=== PATIENT | female | born 1940 | race Caucasian/White ===

== ENCOUNTER → 2017-09-21 | Outpatient (CLI) | payer OTHER ==
[2017-09-21] VITALS (12 sets, daily range): BP systolic 115–146; BP diastolic 53–99
[~2017-09-21] MED LIST: ALBUTEROL2.5 MG/0.5 INH; ARIMIDEX BUCCAL; AUGMENTIN 500-1 EACH PO; AZITHROMYCIN 2250 MG PO; CALCIUM 500 +1 EAC5 PO; CARDIZEM CD120 MG PO; CARDIZEM CD240 MG PO; CARTIA XT240 M1 PO; CEFTIN500 MG PO; CLARITIN10 MG PO; CLEOCIN HCL150 M1 PO; COLACE100 MG PO; COUMADIN 1MG TAB1 M1 PO; COUMADIN 2 MG TA2 M1 PO; COUMADIN 5 MG TA5 M1 PO; COZAAR 25 MG TA25 M2 PO; COZAAR 25 MG TA25 MG PO; COZAAR 50 MG TA50 M2 PO; D3 DOTS2000 UNIT PO; FOSAMAX 70 MG T70 MG PO; GUAIFENESIN L1200 MG PO; HYDROCODONE-AP1 EAC6 PO; HYDROXYCHLOROQ200 M1 PO; KEFLEX500 MG PO; LASIX 40 MG TAB40 MG PO; LEVAQUIN 500 M500 M4 PO; LIPITOR20 MG PO; MEDROLDOSEPACK PO; MUSCLE RELAXER PO; NORCO 5-325 TA1 EACH PO; OXYCODONE HCL 55 MG PO; PACERONE 200 M200 M1 PO; POTASSIUM20 PO; PREDNISONE 10 M10 MG PO; SIMVASTATIN40 MG PO; TRAMADOL 50 MG50 MG PO; TYLENOL EXTRA500 MG PO; VENTOLIN HFA 1818 GM INH; VITAMIN B-12250 MCG PO; VITAMIN B-12500 MCG PO; VITAMIN D400 UNI1 PO; VITAMINC500 PO; XARELTO10 MG PO; XOPENEX1.25 MG/3 IH
[2017-09-21 09:56] LABS: HEMATOCRIT 37.5 % (37.0-47.0); HEMOGLOBIN 12.7 gm/dL (12.0-15.0); MCHC 33.9 g/dL (28.0-37.0); MCV 100.5 fL (80.0-100.0); MPV 8.7 fl. (7.2-11.1); RBC 3.73 mil/uL (4.20-5.00); RDW-CV 14.1 % (10.5-14.5); WBC 3.8 thou/uL (4.0-11.0)
[2017-09-21 10:05] LABS: INR 1.2; PROTIME 11.2 Seconds (9.20-11.50)
[2017-09-21 10:08] LABS: CALCIUM 9.5 mg/dL (8.5-10.1); CREATININE 0.7 mg/dL (0.6-1.3); POTASSIUM 4.4 mmol/L (3.5-5.1)
[2017-09-21 10:12] LABS: ALBUMIN 4.2 g/dL (3.4-5.0); TOTAL BILIRUBIN 0.7 mg/dL (<0.1-1.0); TOTAL PROTEIN 7.3 g/dL (6.4-8.2)
--- NOTE | 2017-09-21 10:25 | EKG ---
[place] [address] ELECTROCARDIOGRAM REPORT Name: SUN SHELLEY Room: [facility]#: [id number] Admission: 09/21/17 Attend Phys: Anselmo Shin MD Discharge: Date of : 42 Report #: [id number] THIS REPORT FOR: //name// [facility] Test Date: 2017-09-21 Test Time: 09:16:16 Pat Name: SUN SHELLEY Department: Room: Gender: F Fire Patrol: JACOB : 1940 Requested By: Anselmo Shin Order Number: [id number] Reading MD: Anselmo Shin Measurements Intervals [place] Rate: 103 P: ID: QRS: 54 QRSD: 119 T: 26 QT: 339 QTc: 444 Interpretive Statements Atrial fibrillation LVH with secondary repolarization abnormality Compared to ECG 04/19/2016 09:22:34 Early repolarization now present Sinus rhythm no longer present Ventricular premature complex(es) no longer present Possible ischemia no longer present Electronically Signed On 09-21-2017 10:25:37 CDT by Anselmo Shin [email or web address] <ELECTRONICALLY SIGNED> By: Anselmo Shin MD, [facility] 09/21/17 1025 5 Anselmo Shin MD, [facility] /EPI
--- NOTE | 2017-09-21 13:27 | CARD ---
[address] [address] CARDIAC CATH REPORT Name: SUN SHELLEY Room: [facility]#: [id number] Admission: 09/21/17 Attend Phys: Anselmo Shin MD Discharge: Date of : 42 Report #: [id number] THIS REPORT FOR: //name// CC: Anselmo Case DATE OF SERVICE: 09/21/2017 PRIMARY CARE PHYSICIAN: Claudia Case MD. INDICATIONS: Atrial fibrillation, shortness of breath, palpitations. CONSENT: Risks, benefits of the procedure described to patient in lay terms. The patient elects to proceed. After confirming that the patient had been taking Xarelto daily for more than 30 days prior to her presentation and her amiodarone. The patient was taken to the shellfish processing laborer holding procedure for an outpatient elective direct current cardioversion. Conscious sedation utilized was 3 mg of IV Versed and 50 mcg of IV fentanyl. Heart rate, oxygenation, blood pressure and respiratory rate were monitored per usual protocol. The patient was cardioverted with 200 joules, biphasic from atrial fibrillation to sinus rhythm, heart rate in the 80s. IMPRESSION: Successful direct current cardioversion. <ELECTRONICALLY SIGNED> By: Anselmo Shin MD, [facility] 09/21/17 1327 1021 1322[facility] Jenifer Shin MD, FACC /nt
--- NOTE | 2017-09-21 15:14 | EKG ---
[place] [address] ELECTROCARDIOGRAM REPORT Name: SUN SHELLEY Room: [facility]#: [id number] Admission: 09/21/17 Attend Phys: Anselmo Shin MD Discharge: Date of : 42 Report #: [id number] THIS REPORT FOR: //name// [facility] Test Date: 2017-09-21 Test Time: 10:43:34 Pat Name: SUN SHELLEY Department: Room: Gender: F Lpc: : 1940 Requested By: Anselmo Shin Order Number: [id number] Reading MD: Anselmo Shin Measurements Intervals [place] Rate: 85 P: 71 ND: 209 QRS: 10 QRSD: 117 T: 108 QT: 379 QTc: 451 Interpretive Statements Sinus rhythm LVH with secondary repolarization abnormality Compared to ECG 09/21/2017 09:16:16 Atrial fibrillation no longer present Electronically Signed On 09-21-2017 15:14:24 CDT by Anselmo Shin [email or web address] <ELECTRONICALLY SIGNED> By: Anselmo Shin MD, [facility] 09/21/17 1514 1043 1043 Anselmo Shin MD, [facility] /EPI
== END | disposition home or self-care (01) ==
LOC: M.CL 08:31
PROVIDERS: Internal Medicine Cardiovascular Disease
DX: I48.91 Unspecified atrial fibrillation (principal); J44.9 Chronic obstructive pulmonary disease, unspecified; Z88.8 Allergy status to other drugs, medicaments and biological substances; Z79.899 Other long term (current) drug therapy

== ENCOUNTER 2018-01-15 11:40 | Emergency (ER) | payer OTHER ==
[~2018-01-15] VITALS: Ht 144.8 cm; Wt 57.6 kg
[~2018-01-15 11:40] MED LIST changes: -HYDROCODONE-AP1 EAC6 PO
[2018-01-15] MEDS ORDERED: HYDROCODONE-AP1 EAC6 PO (14:56)
[2018-01-15 15:06] VITALS: BP 143/45
== END 2018-01-15 15:06 | disposition home or self-care (01) ==
LOC: M.ERS 11:40
DX: M13.851 Other specified arthritis, right hip (principal); E78.00 Pure hypercholesterolemia, unspecified; I10 Essential (primary) hypertension; I48.91 Unspecified atrial fibrillation; J45.909 Unspecified asthma, uncomplicated; F17.210 Nicotine dependence, cigarettes, uncomplicated; Z88.6 Allergy status to analgesic agent; Z88.8 Allergy status to other drugs, medicaments and biological substances; Z90.710 Acquired absence of both cervix and uterus

== ENCOUNTER 2018-05-09 21:25 | Inpatient (IN) | payer OTHER ==
[~2018-05-09] VITALS: Ht 144.8 cm; Wt 57.6 kg
[~2018-05-09 21:25] MED LIST changes: +COZAAR 50 MG TA50 M1 PO; -COZAAR 50 MG TA50 M2 PO; +HYDROCODONE-AP1 EAC6 PO; -XARELTO10 MG PO; +XARELTO15 MG PO
[2018-05-09 21:29] VITALS: BP 127/50
[2018-05-09 21:53] LABS: ABSOLUTE BASOPHILS 0.1 thou/uL (0.0-0.2); ABSOLUTE EOSINOPHILS 0.1 thou/uL (0.0-0.7); ABSOLUTE LYMPHOCYTES 1.3 thou/uL (0.8-5.3); ABSOLUTE MONOCYTES 0.6 thou/uL (0.0-1.2); ABSOLUTE NEUTROPHILS 5.4 thou/uL (1.6-8.1); BASOPHILS 0.9 %; EOSINOPHILS 1.6 %; HEMATOCRIT 29.2 % (37.0-47.0); HEMOGLOBIN 9.9 gm/dL (12.0-15.0); LYMPHOCYTES 17.6 %; MCH 33.8 pg (26.0-34.0); MCV 99.2 fL (80.0-100.0); MPV 7.9 fl. (7.2-11.1); NUCLEATED RBCS 0 /100WBC; PLATELET COUNT* 267 thou/uL (150-400); POLYS 71.9 %; RBC 2.95 mil/uL (4.20-5.00); RDW-CV 12.5 % (10.5-14.5); WBC 7.5 thou/uL (4.0-11.0)
[2018-05-09] MEDS ORDERED: HYDROCHLOROTHIA25 M2 (21:58)
[2018-05-09 22:02] LABS: ANION GAP 5 mmol/L (7-16); BUN 15 mg/dL (7-18); CALCIUM 8.4 mg/dL (8.5-10.1); CHLORIDE 93 mmol/L (98-107); CO2 27 mmol/L (21-32); CREATININE 0.9 mg/dL (0.6-1.3); GLUCOSE 119 mg/dL (70-99); POTASSIUM 4.3 mmol/L (3.5-5.1); SODIUM 125 mmol/L (136-145)
[2018-05-09] MEDS ORDERED: PROAIR HFA8.5 GM (22:02)
[2018-05-09] MEDS ORDERED: CARDIZEM CD240 MG (22:05)
[2018-05-09] MEDS ORDERED: LOSARTAN POTASS50 MG (22:05)
[2018-05-09 22:06] LABS: INR 1.2; PROTIME 12.6 Seconds (9.20-11.50)
[2018-05-09 22:12] LABS: ALBUMIN 3.6 g/dL (3.4-5.0); ALKALINE PHOSPHATASE 88 U/L (46-116); LIPASE 114 U/L (73-393); NT-PRO BRAIN NAT PEPTIDE 544 pg/mL (<300); SGOT 27 U/L (15-37); SGPT 31 U/L (30-65); TOTAL BILIRUBIN 0.4 mg/dL (<0.1-1.0); TOTAL PROTEIN 6.8 g/dL (6.4-8.2); TROPONIN-I LEVEL <0.06 ng/mL (<0.06)
[2018-05-09] MEDS ORDERED: PACERONE 200 M200 M1 (22:14)
[2018-05-09 23:25] VITALS: BP 111/54
[2018-05-10 00:06] VITALS: BP 117/68
[2018-05-10] MEDS ORDERED: CALCIUM 600 +1 EA13 PO (01:17)
[2018-05-10] MEDS ORDERED: ARIMIDEX1 MG PO (01:18)
[2018-05-10 04:00] VITALS: BP 125/55
--- NOTE | 2018-05-10 04:28 | NUR ---
PATIENT ADMITTED TO ROOM 221 AROUND 2335 FROM ER. PATIENT ORIENTED TO ROOM AND CALL LIGHT. ADMISSION HISTORY AND ASSESSMENT COMPLETED CHARTED, VSS OTHER THAN HR 30-40'S. PATIENT ASYMPTOMATIC. DENIES CHEST PAIN OR DISCOMFORT. O2 AT 2L PER NC, SATS >92%. NPO FOR CARDIOLOGY CONSULT IN AM. UP WITH STANDBY ASSIST TO BATHROOM. UTILIZES CALL LIGHT APPROPRIATELY AND ABLE TO VOICE NEEDS. CALL LIGHT WITHIN REACH
[2018-05-10 05:35] LABS: POTASSIUM 4.3 mmol/L (3.5-5.1)
[2018-05-10 05:45] LABS: URINE BILIRUBIN NEGATIVE (Negative); URINE BLOOD NEGATIVE (Negative); URINE CLARITY CLEAR; URINE COLOR YELLOW; URINE GLUCOSE-RANDOM NEGATIVE (Negative); URINE KETONES NEGATIVE (Negative); URINE LEUKOCYTES-REFLEX 1+ (Negative); URINE PROTEIN NEGATIVE (Negative); URINE UROBILINOGEN 0.2 E.U./dl (0.2-1.0)
[2018-05-10 05:47] LABS: URINE POTASSIUM-RANDOM 20.7 mmol/L
[2018-05-10 05:58] LABS: URINE NITRITE-REFLEX POSITIVE (Negative)
[2018-05-10 06:39] LABS: CASTS None Seen /LPF (None Seen); CRYSTALS None Seen /LPF (None Seen); MUCUS 0-3 Light strn/LPF (None Seen); SQUAMOUS 0-3 Few /LPF (0-3); URINE RBC 0-2 Rare /HPF (0-2); URINE WBC-REFLEX 6-15 Few /HPF (0-5)
[2018-05-10 07:30] VITALS: BP 140/53
[2018-05-10 10:56] LABS: CHOLESTEROL 116 mg/dL (<200); HDL CHOLESTEROL 78 mg/dL (>40); LDL CHOLESTEROL 31 mg/dL (<100); TC:HDL 1.5 Ratio (Not establshd); TRIGLYCERIDE 37 mg/dL (<150); VLDL 7 mg/dL (<40)
[2018-05-10 10:57] LABS: SERUM ASSESSMENT Clear
--- NOTE | 2018-05-10 15:05 | NUR ---
Pt is A&O. Resides at home alone. Independent and active. Pt has a cane that she uses out in the community, also has a walker, but does not use. Hx of . Hx of skilled at [facility]. Pt has strong family support and friends/neighbors. Goal is home at de, no needs anticipated.
[2018-05-10 16:19] VITALS: BP 108/48
--- NOTE | 2018-05-10 17:24 | CARDNUC ---
[place] [address] CARDIAC NUCLEAR IMAGING REPORT Name: SUN SHELLEY Room: [address] Volodymyr#: [id number] Admission: 05/09/18 Attend Phys: Raj Harrison Discharge: Date of : 42 Date of Service: 05/10/18 1724 Report #: [id number] THIS REPORT FOR: //name// APPROVED REPORT Study performed: 05/10/2018 09:52:00 Indication: Chest pain; bradycardia Patient Location: In-Patient Room #: 221 Stress Tech: Amaya Sue Stress Nurse: Tata Berrios RN Ht: 4 ft 9 in Wt: 130 lbs BSA: 1.50 m2 BMI: 28.12 Medical History Medical History: AF, CM, COPD Medications: xarelto, statin, losartan, HCTZ, amiodarone, diltiazem Cardiac Risk Factors: Age, HLP, tobacco use Previous Cardiac Procedures: Afib ablation Meds Held (24 hrs): diltiazem, amiodarone Resting Data Rest SPECT myocardial perfusion imaging was performed in supine position 30 minutes following the intravenous injection of 11.0 mCi of Tc-99m Sestamibi. Time of rest injection: 10:30 The images were gated to evaluate regional wall motion and calculate left ventricular ejection fraction. Administration Route: IV Administration Site: Right Arm Pharmacologic Stress Pharmacologic stress test was performed by injecting Regadenoson 0.4 mg IV push over 10-15 seconds immediately followed by the intravenous injection of 29.7 mCi of Tc-99m Sestamibi. Time of stress injection: 12:00 Administration Route: IV Administration Site: Right Arm Heart Rate at time of stress injection: 107 bpm. Gated Stress SPECT was performed 40 minutes after stress injection. The images were gated to evaluate regional [place] [address] CARDIAC NUCLEAR IMAGING REPORT Name: SUN SHELLEY Room: [address]#: [id number] Admission: 05/09/18 Attend Phys: Raj Harrison Discharge: Date of : 42 Date of Service: 05/10/18 1724 Report #: [id number] left ventricular ejection fraction. Prone imaging was performed. Stress Test Details Stress Test: Pharmacologic stress testing performed using 0.4 mg of regadenoson per 5 mL given IV over 10 seconds. HR Max Heart Rate (APMHR): 144 bpm Resting HR: 70 bpm Target HR (85% APMHR): 122 bpm Max HR Achieved: 107 bpm % of APMHR: 74 Recovery HR: 93 bpm BP Resting BP: 149/58 mmHg Max BP: 139/82 mmHg Recovery BP: 101/71 mmHg ECG Resting ECG: atrial fibrillation, left ventricular hypertrophy with repolarization abnormalities. Stress ECG: atrial fibrillation, left ventricular hypertrophy with repolarization abnormalities. ST Change: None Arrhythmia: None Recovery ECG: atrial fibrillation, left ventricular hypertrophy with repolarization abnormalities. Recovery ST Change: None Recovery Arrhythmia: None Clinical Reason for Termination: Completed protocol Stress Symptoms: none The patient tolerated Lexiscan infusion without significant symptoms. Stress ECG Conclusion The baseline 12-lead EKG shows atrial fibrillation. There is left ventricular hypertrophy with repolarization abnormalities noted. EKGs during and post Lexiscan infusion showed continued atrial fibrillation. No significant ST or T wave changes when compared to baseline were noted. There were no stress-induced arrhythmias. Study Quality Study: Good Artifact: [place] [address] CARDIAC NUCLEAR IMAGING REPORT Name: KARSTENSUN Tim Room: [address] Volodymyr#: [id number] Admission: 05/09/18 Attend Phys: Raj Harrison Discharge: Date of : 42 Date of Service: 05/10/18 1724 Report #: [id number] Study Data At rest, the left ventricular ejection fraction was 76%.. Post stress, the left ventricular ejection was 74%.. TID = 1.08. Perfusion Normal left ventricular perfusion. Wall Motion Normal left ventricular wall motion. Nuclear Conclusion ECG Findings: non-diagnostic Clinical Findings: negative for ischemia Nuclear Findings: negative for ischemia Exercise Capacity: not assessed Left Ventricular Function: normal Risk Study: low Myocardial perfusion images show no defect to suggest infarct or ischemia. Left ventricular systolic function appears normal on gated studies. This is a low risk study. <Conclusion> The baseline 12-lead EKG shows atrial fibrillation. There is left ventricular hypertrophy with repolarization abnormalities noted. EKGs during and post Lexiscan infusion showed continued atrial fibrillation. No significant ST or T wave changes when compared to baseline were noted. There were no stress-induced arrhythmias. <ELECTRONICALLY SIGNED> By: Lennox Gentile MD, FACC 05/10/18 1724 1724 172 Lennox Gentile MD, FACC /INF
--- NOTE | 2018-05-10 18:03 | 2DMMODE ---
[place] [address] 2 D/M-MODE ECHOCARDIOGRAM Name: SUN SHELLEY Room: [address] Cornel Helm#: [id number] Admission: 05/09/18 Attend Phys: Raj Harrison Discharge: Date of : 42 Date of Service: 05/10/18 1803 Report #: [id number] THIS REPORT FOR: //name// APPROVED REPORT Study performed: 05/10/2018 16:35:36 EXAM: Comprehensive 2D, Doppler, and color-flow Echocardiogram Patient Location: In-Patient Room #: [facility] Status: routine BSA: 1.50 HR: 70 bpm BP: 140/53 mmHg Rhythm: NSR Other Information Study Quality: Good Indications Chest Pain 2D Dimensions IVSd: 12.22 (7-11mm) LVOT Diam: 21.00 (18-24mm) LVDd: 48.59 mm PWd: 12.82 (7-11mm) Ascending Ao: 32.97 (22-36mm) LVDs: 31.94 (25-40mm) Aortic Root: 36.55 mm Volumes Left Atrial Volume (Systole) LA ESV Index: 84.30 mL/m2 Aortic Valve AoV Peak Kyrie.: 1.63 m/s AO Peak Gr.: 10.57 mmHg LVOT Max P.17 mmHg AO Mean Gr.: 5.18 mmHg LVOT Mean P.08 mmHg LVOT Max V: 1.14 m/s AO V2 VTI: 26.32 cm LVOT Mean V: 0.65 m/s JARVIS (VTI): 2.49 cm2 LVOT V1 VTI: 18.95 cm Mitral Valve E/A Ratio: 2.14 MV Decel. Time: 157.47 ms MV E Max Kyrie.: 0.89 m/[place] [address] 2 D/M-MODE ECHOCARDIOGRAM Name: SUN SHELLEY Room: [address] Volodymyr#: [id number] Admission: 05/09/18 Attend Phys: Raj Harrison Discharge: Date of : 42 Date of Service: 05/10/18 1803 Report #: [id number] MV PHT: 45.67 ms MVA (PHT): 4.82 cm2 TDI E/Medial E': 12.71 Medial E' Kyrie.: 0.07 m/s Pulmonary Valve PV Peak Kyrie.: 1.30 m/s PV Peak Gr.: 6.71 mmHg Tricuspid Valve RAP Estimate: 5.00 mmHg TR Peak Gr.: 19.94 mmHg RVSP: 25.00 mmHg PA Pressure: 25.00 mmHg Left Ventricle The left ventricle is normal size. There is normal LV segmental wall motion. Mild concentric left ventricular hypertrophy. Left ventricular systolic function is normal. LVEF is 60-65%. This study is not technically sufficient to allow evaluation of the LV diastolic function. Right Ventricle The right ventricle is normal size. The right ventricular systolic function is normal. Atria Left atrium is severely dilated. Right atrium is moderately dilated. Aortic Valve Mild aortic valve sclerosis. No aortic regurgitation is present. There is no aortic valvular stenosis. Mitral Valve Mitral annular calcification. Mild mitral regurgitation. No evidence of mitral valve stenosis. Tricuspid Valve The tricuspid valve is normal in structure. Trace tricuspid regurgitation. No pulmonary hypertension. Pulmonic Valve The pulmonary valve is normal in structure. There is no pulmonic valv[place] [address] 2 D/M-MODE ECHOCARDIOGRAM Name: SUN SHELLEY Room: [address] Cornel Helm#: [id number] Admission: 05/09/18 Attend Phys: Raj Harrison Discharge: Date of : 42 Date of Service: 05/10/18 1803 Report #: [id number] Great Vessels The aortic root is normal in size. IVC is normal in size and collapses >50% with inspiration. Pericardium There is no pericardial effusion. <Conclusion> The left ventricle is normal size. Mild concentric left ventricular hypertrophy. Left ventricular systolic function is normal. LVEF is 60-65%. Left atrium is severely dilated. Right atrium is moderately dilated. Mild aortic valve sclerosis. Mitral annular calcification. Mild mitral regurgitation. Trace tricuspid regurgitation. No pulmonary hypertension. IVC is normal in size and collapses >50% with inspiration. <ELECTRONICALLY SIGNED> By: Lennox Gentile MD, FACC 05/10/181802 02 02 Lennox Gentile MD, FACC /INF
--- NOTE | 2018-05-10 18:10 | NUR ---
VSS, ASSUMED CARE IN THE AM, ASSESSMENT PERFORMED AND CHARTED, FALL PRECAUTIONS IN PLACE AND CALL LIGHT IN REACH, PT IS A&O4 AND UP AD ROSIBEL, TRACING JUNCTIONAL ON THE MONITOR, PT ON RA, AND SHOULD D/C TOMORROW, PT GOAL IS TO COMPLETE STRSS TEST, AND SAFETY, AT THIS TIME PT HAS HAS OT STATUS CHANGE HOURLY ROUNDS COMPLETED AND WILL FOLLOW WITH PLAN OF CARE.
--- NOTE | 2018-05-10 18:25 | EKG ---
[place] [address] ELECTROCARDIOGRAM REPORT Name: SUN SHELLEY Room: [address]#: [id number] Admission: 05/09/18 Attend Phys: Jian Carpio Discharge: Date of : 42 Report #: [id number] THIS REPORT FOR: //name// [facility] Test Date: 2018-05-09 Test Time: 21:34:06 Pat Name: SUN SHELLEY Department: Room: [facility] Gender: F Project Designer: Aimee CAZARES : 1940 Requested By: Maxim Dubois Order Number: [id number] MD: Braulio Mitchell Measurements Intervals [place] Rate: 49 P: [place]: QRS: 61 QRSD: 123 T: 254 QT: 462 QTc: 418 Interpretive Statements Junctional rhythm LVH with secondary repolarization abnormality Compared to ECG 09/21/2017 10:43:34 Junctional rhythm now present Sinus rhythm no longer present Electronically Signed On 05-10-2018 18:24:53 COMMERCIAL LOAN OFFICER by Braulio Mitchell [email or web address] <ELECTRONICALLY SIGNED> By: Braulio Mitchell MD, [facility] 05/10/18 1824 33 Braulio Mitchell MD, [facility] /EPI
[2018-05-10 20:13] VITALS: BP 126/57
[2018-05-11] VITALS (7 sets, daily range): BP systolic 110–145; BP diastolic 41–82
--- NOTE | 2018-05-11 05:48 | NUR ---
PT IS ABLE TO COMMUNICATE HER NEEDS TO STAFF EFFECTIVELY. SHE HAS DENIED THE NEED FOR PAIN MEDICATION UP TO THIS TIME. LEFT ARM LIMB ALERT MAINTAINED. POSSIBLE DISCHARGE LATER TODAY.
--- NOTE | 2018-05-11 11:01 | NUR ---
VSS, ASSUMED CARE IN THE AM, ASSESSMENT PERFORMED AND CHARTED, FALL PRECUATIONS IN PLACE AND CALL LIGHT IN REACH, PT IS A&O4 AND UP AD ROSIBEL, ON RA AND IS TRACING AFIB ON THE MONITOR, RATE UNCONTROLED PT IS DENIES ANY PAIN AND HER GOAL IS TO LOWER HR AND SIT UP IN CHAIR WILL FOLLOW WITH PLAN OF CARE.
--- NOTE | 2018-05-11 15:37 | EKG ---
[place] [address] ELECTROCARDIOGRAM REPORT Name: SUN SHELLEY Room: [address] ADM IN M.R.#: [id number] Admission: 05/11/18 Attend Phys: Jian Carpio Discharge: Date of : 42 Report #: [id number] THIS REPORT FOR: //name// [facility] Test Date: 2018-05-11 Test Time: 09:23:46 Pat Name: SUNDA SHELLEY Department: Room: [address] Gender: F Director Sales And Trade Marketing: Emerson Farfan : 1940 Requested By: Starr Worthy Order Number: [id number] Srini MD: Braulio Mitchell Measurements Intervals [place] Rate: 105 P: 268 TX: 56 QRS: -7 QRSD: 130 T: 205 QT: 363 QTc: 480 Interpretive Statements Slow atrial flutter with variable bloci Atrial premature complexes Short [place] interval LVH with secondary repolarization abnormality Compared to ECG 05/09/2018 21:34:06 Atrial flutter is noted Junctional rhythm no longer present Electronically Signed On 05-11-2018 15:36:51 ADMINISTRATIVE ASSISTANT DATA ENTRY by Braulio Mitchell [email or web address] <ELECTRONICALLY SIGNED> By: Braulio Mitchell MD, [facility] 05/11/18 1536 2 2 Braulio Mitchell MD, [facility] /EPI
--- NOTE | 2018-05-11 18:12 | NUR ---
VSS, ASSUMED CARE IN THE AM, ASSESSMENT PERFORMED AND CHARTED, FALL PRECAUTIONS IN PLACE AND CALL LIGHT IN REACH, PT IS A&O4, TRACING AFIB, ON THE MONITOR, PT IS ON RA, UP AD ROSIBEL, AND HER GOAL WAS TO CONVERT TO SR AND OR SLOW HR TO RATE CONTROLLED, PT DENIES ANY PAIN, OR HAS CONVERTED TO SR SO GOAL MET AND WILL D/C MADDI HOURLY ROUNDS COMPLETED AND CHART CHECKED.
[2018-05-12] VITALS: BP 192/78
[2018-05-12 04:00] VITALS: BP 173/76
--- NOTE | 2018-05-12 05:37 | NUR ---
ASSUMED PATIENT CARE AT 1900. PATIENT HAD MINOR COMPLAINTS OF PAIN THROUGH THE NIGHT. SOMEWHAT CONTROLLED BY ORAL MEDICATIONS. PATIENT STATES THAT "THERE IS NOTHING MUCH THAT CAN BE DONE FOR ARTHRITIS PAIN" ALERT AND ORIENTED TOMES FOUR. IV PATENT TO FLUSHES. WATER PUMP OPERATOR AND HOURLY ROUNDING COMLETED CHARTED.
[2018-05-12 08:00] VITALS: BP 169/71
--- NOTE | 2018-05-12 10:31 | NUR ---
PT ALERT AND ORIENTED. TELE TRACKING NSR AND ALL VSS ON ROOM AIR. C/O LEFT SHOULDER/ARM PAIN AND NAUSEA. STATES HX LEFT SHOULDER ARTHRITIS. MD AWARE AND MEDICATED PER EMAR. EDUCATED ON SAFETY AND PLAN OF CARE. PLEASE SEE ASSESSMENT FOR ADDITIONAL INFORMATION. WILL CONTINUE TO MONITOR
[2018-05-12 12:00] VITALS: BP 154/63
[2018-05-12 16:00] VITALS: BP 149/72
[2018-05-12 21:00] VITALS: BP 145/79
[2018-05-13] VITALS (14 sets, daily range): BP systolic 83–141; BP diastolic 33–74
--- NOTE | 2018-05-13 05:12 | NUR ---
ASSUMED PATIENT CARE AT 1900. PATIENT ALERT AND ORIENTED TIMES FOUR. VERY DROWSY. DISH UP PERSON AND HOURLY ROUNDING COMPLETED CHARTED. VITAL SIGNS STABLE.
[2018-05-13] MEDS ORDERED: CLONAZEPAM 0.50.5 M1 (13:08)
[2018-05-13] MEDS ORDERED: PROZAC10 MG PO (13:08)
--- NOTE | 2018-05-13 16:07 | NUR ---
0800: PT ALERT AND ORIENTED. TELE TRACKING NSR AND ALL VSS ON ROOM AIR. PT C/O NAUSEA, MEDICATED PER EMAR. REPEAT SODIUM CRITICAL- DR. PANTOJA NOTIFIED. PT DENIES CP, SOA. EDUCATED ON SAFETY AND PLAN OF CARE. 1330: PT IN RESTROOM WITH DAUGHTER. PER DAUGHTER AND PT, PT WAS STANDING FOR DAUGHTER TO REPLACE GOWN. PT BEGAN TO FEEL WEAK AND LIGHT HEADED, SO DAUGHTER LOWERED PT TO GROUND. NO CHANGES IN LOC. BLOOD PRESSURES LOW, MAP'S 40'S-50'S AND RAPID RESPONSE CALLED. ORDERS TO TRANSFER TO ICU. WILL CONTINUE TO MONITOR
--- NOTE | 2018-05-13 16:59 | NUR ---
PATIENT RECEIVED FROM TELE AT 1605, ALERT AND ORIENTED. VITALS WITHIN NORMAL RANGE. ICU ORIENTATION PROVIDED.
[2018-05-13 20:21] LABS: ALBUMIN 3.4 g/dL (3.4-5.0); CALCIUM 8.6 mg/dL (8.5-10.1); POTASSIUM 4.2 mmol/L (3.5-5.1); TOTAL BILIRUBIN 0.8 mg/dL (<0.1-1.0); TOTAL PROTEIN 7.2 g/dL (6.4-8.2)
--- NOTE | 2018-05-13 20:40 | NUR ---
CRITICAL NA [address] BRIGHT. NS 3% ORDERED WITH NA REDRAW Q4H, NS 3% TO BE REPEATED UNTIL NA [address] BRIGHT TO BE CALLED IF NA INCREASES MORE THAN 2 IN FOUR HOURS. 1L ORAL FLUID RESTRICTION ORDERED.
[2018-05-14] VITALS (15 sets, daily range): BP systolic 108–166; BP diastolic 38–95
--- NOTE | 2018-05-14 06:56 | NUR ---
VSS, O2 SAT REMAINS >92% ON RA. NA HAS BEEN MONITORED Q4HR PER DR BRIGHT'S REQUEST, LEVEL HAS ONLY INCREASED FROM 115 TO 116 ALL NIGHT. NS 3% CONTINUES TO INFUSE AT 20ML/HR PER DR BRIGHT. 1L FR MAINTAINED, ORAL INTAKE 200ML SINCE MIDNIGHT. PT HAD ONE EPISODE OF NAUSEA AND VOMITTING RELIEVED BY IVP ZOFRAN. PT C/O LEFT RIB PAIN X1, ADEQUATE RELIEF OBTAINED WITH PRN TYLENOL. PT ASSISTED TO BSC X1 WITH MINIMAL ASSIST, TOLERATED WELL THOUGH BP DECREASED DURING TRANSFER BACK TO BED, DENIED DIZZINESS, N/V EPISODE WAS SHORTLY AFTER TRANSFER BACK TO BED. PT MOVES SELF ADEQUATELY IN BED TO RELIEVE PRESSURE. CALL LIGHT WITHIN REACH.
--- NOTE | 2018-05-14 09:37 | EKG ---
[place] [address] ELECTROCARDIOGRAM REPORT Name: SUN SHELLEY Room: [address] ADM IN .R.#: [id number] Admission: 05/11/18 Attend Phys: Jian Carpio Discharge: Date of : 42 Report #: [id number] THIS REPORT FOR: //name// [facility] Test Date: 2018-05-13 Test Time: 14:08:04 Pat Name: SUN SHELLEY Department: Room: [facility] Gender: F Graphic Production Artist: : 1940 Requested By: Buck Bunch Order Number: [id number] Srini MD: Darwin Corrales Measurements Intervals [place] Rate: 177 P: [place]: QRS: 18 QRSD: 139 T: 224 QT: 411 QTc: 706 Interpretive Statements sinus rhythm nonspecific st changes Artifact in lead(s) I,III,aVL,V1,V2,V3,V4,V5,V6 and baseline wander in lead(s) V4 Compared to ECG 05/11/2018 09:23:46 Atrial flutter no longer present Left ventricular hypertrophy no longer present Electronically Signed On 05-14-2018 9:37:33 RN LAB by Darwin Corrales [email or web address] <ELECTRONICALLY SIGNED> By: Darwin Corrales MD, FACC 05/14/18 0937 1408 1408 Darwin Corrales MD, [facility] /EPI
--- NOTE | 2018-05-14 10:18 | CON ---
[address] [address] CONSULTATION Name: UDAY SHELLEYSIYoli Dumont Room: [address] IN M.R.#: [id number] Admission: 05/11/18 Attend Phys: Jian Carpio Discharge: Date of : 42 Report #: [id number] THIS REPORT FOR: //name// CC: Claudia Harrison CONSULTING PHYSICIAN: Raj Harrison DO REASON FOR CONSULTATION: Hyponatremia. HISTORY OF PRESENT ILLNESS: A 77-year-old female with no known history of hyponatremia, was admitted with sodium of 125. Since being in the hospital, it had decreased to 114. She was on hydrochlorothiazide, this is a fairly new medication that was started in her geographic analyst's office about 2 months ago. She denies any weight loss, denies any excess fluid intake and back in September of last year had normal sodium of 138. She has had a cough for about 3 weeks and tells me that she was treated with some antibiotics. She currently is awake, alert, does not have any complaints and appears to be comfortable. REVIEW OF SYSTEMS: Constitutional, psych, heme, eyes, ENT, respiratory, cardiac, GI, , endocrine, all negative except as documented above. PAST MEDICAL HISTORY: Asthma, AFib with history of RVR and ablation, hysterectomy, dyslipidemia, hypertension. SOCIAL HISTORY: Positive for tobacco. FAMILY HISTORY: Positive for hypertension. CURRENT MEDICATIONS: Reviewed. PHYSICAL EXAMINATION: VITAL SIGNS: Blood pressure 117/54, pulse 74, respirations 19, temperature 36.9. GENERAL: No acute distress. EYES: Open. EARS: Externally normal. CARDIOVASCULAR: Regular rate. LUNGS: No crackles. ABDOMEN: Soft. MUSCULOSKELETAL: Nontender. PSYCHIATRIC: Awake, alert. LABORATORY DATA: Sodium 115, potassium 4, chloride 81, bicarbonate 25, BUN 14, creatinine 0.6, glucose 117, calcium 8.9, White cell count 11.7, hemoglobin 11.4, platelets 358, albumin 3.6. [place] [address] CONSULTATION Name: SUN SHELLEY Room: [address] IN [facility]#: [id number] Admission: 05/11/18 Attend Phys: Jian Carpio Discharge: Date of : 42 Report #: [id number] ASSESSMENT: 1. Hyponatremia with sodium of 125 on admission. It was 114 on 05/13/2018. On 09/2017, sodium is 138. No evidence of excess fluid intake or weight loss. CT head was unrevealing. Chest x-ray shows infiltrates. She was also on hydrochlorothiazide, which was newly started about 2 months ago. She was also on amiodarone. EF of 60-65% and TSH was normal. Serum osmolarity was 270. Urine osmolarity was 246. 2. Hypertension. 3. Atrial fibrillation 4. Asthma. 5. History of breast cancer. PLAN: 1. Urine sodium and urine potassium have been ordered. 2. We will give an infusion of 3% saline given the downward trajectory of her 3% saline. We will stop hydrochlorothiazide and have her avoid that indefinitely. Monitor I's and O's. Serial sodiums will be monitored as well. Thank you for requesting my opinion in the care and management of this patient. <ELECTRONICALLY SIGNED> By: Yannick Mathias MD 05/14/18 1018 1330 [id number] Mathias MD /nt
--- NOTE | 2018-05-14 17:17 | NUR ---
PT ASSESSMENT CHARTED. VSS THROUGHOUT SHIFT. UP WITH PT/OT. REPORT GIVEN TO TELEMETRY NURSE. PT TRANSFERED TO ROOM 207 VIA WHEELCHAIR WITH NURSING STAFF.
--- NOTE | 2018-05-14 18:04 | NUR ---
RECEIVED REPORT FROM KYRA PAZ FROM ICU. PT TRANSFERED TO TELE AROUND 1708, ASSUMED CARE. VSS. PT A&OX4. DENIES PAIN OR DISCOMFORT. PT OREIENTED TO ROOM , BED AND CALL LIGHT. SODIUM CHLORIDE 3% INFUSING PER IV. INTERNATIONAL MARKETING SPECIALIST PLACED. PT CURRENTLY RESTING IN BED WATCHING TV. FALL PRECAUTIONS IN PLACE. CALL LIGHT IS WITHIN REACH. HOURLY ROUNDING PERFORMED.
[2018-05-15] VITALS: BP 150/65
[2018-05-15 04:00] VITALS: BP 111/45
[2018-05-15 05:18] LABS: CALCIUM 8.3 mg/dL (8.5-10.1); CREATININE 0.5 mg/dL (0.6-1.3); MAGNESIUM 2.6 mg/dL (1.8-2.4); PHOSPHORUS* 2.2 mg/dL (2.5-4.9); POTASSIUM 3.3 mmol/L (3.5-5.1)
--- NOTE | 2018-05-15 05:19 | NUR ---
Pt a/o x 4. RA. VSS. Up with standby assist and walker. Na+ Q4HR x 3 days. Last N+ level called to Dr. Coon, order received at about 2330 to decrease 3% NaCl to 20 mL/hr. Instructed by Dr. Coon to call if Na+ goes up or down by 2 points with each Na+ result. Awaiting AM Na+ result. Left arm limb restriction band in place. Bed alarm on. Fall precautions maintained. Call light within reach. Pt resting in bed comfortably at this time without any apparent distress noted. 3% NaCl infusing per order. Will continue to monitor.
[2018-05-15 09:00] VITALS: BP 100/41
--- NOTE | 2018-05-15 10:28 | NUR ---
ASSUMED PT CARE AT 0700 PT IS ALERT AND ORIENTED X 4 PT DENIES PAIN OR SOA ON RA, PT IS UP WITH ASSIST X 1 WITH CANE PT IS A FALL RISK BED ALARM IS ON, PT IS SR BBB ON THE MONITOR, SPOKE WITH ITINERANT TEACHER ASSISTANT TAKE OFF MAN THIS AM WHO ORDERED TO STOP FLUIDS PT SODIUM IS STABALIZING WILL WAIT FOR ROUNDING TAKE OFF MAN TO SEE PT, PT IS PROGRESSING TOWARDS GOALS, WILL CONTINUE TO MONITOR
--- NOTE | 2018-05-15 10:59 | NUR ---
NO EXPERIENCE SPOKE TO THE PATIENT TO DISCUSS DISCHARGE PLANNING NEEDS AND SKILLED VS HOME WITH HH AT D/C. PATIENT STATES 'IM NOT GOING ANYWHERE BUT HOME'. PATIENT IS OPEN TO HH WITH [facility]. [facility] INFORMED OF REFERRAL FOR HH. CM WILL REMAIN AVIALABLE TO ASSIST AND FOLLOW NEEDED.
[2018-05-15 11:54] VITALS: BP 82/30
[2018-05-15 15:54] VITALS: BP 105/34
[2018-05-15] MEDS ORDERED: HYDROXYCHLOROQ200 M1 PO (17:35)
[2018-05-15] MEDS ORDERED: SYNTHROID50 MCG PO (17:36)
[2018-05-15 17:38] VITALS: BP 118/58
[2018-05-15] MEDS ORDERED: XARELTO10 MG PO (17:49)
--- NOTE | 2018-05-16 15:59 | NUR ---
P.T. ORDERS RECEIVED 05/14/18. PT DISCHARGED 05/15/18 PRIOR TO COMPLETION OF P.T. EVAL.
== END 2018-05-15 18:59 | disposition home health service (06) | DRG 303 ==
LOC: M.ERS 21:25 → M.2W 22:36 → M.TBA-ER 22:36 → M.2W 22:36 → M.ICU 05-11 09:20 → M.2W 05-14 17:17
PROVIDERS: Emergency Medicine; Internal Medicine; Internal Medicine Nephrology; ADMIT Internal Medicine
DX: I25.110 Atherosclerotic heart disease of native coronary artery with unstable angina pectoris (principal); E87.1 Hypo-osmolality and hyponatremia; D68.59 Other primary thrombophilia; Z66 Do not resuscitate; I49.5 Sick sinus syndrome; I12.9 Hypertensive chronic kidney disease with stage 1 through stage 4 chronic kidney disease, or unspecified chronic kidney disease; N18.2 Chronic kidney disease, stage 2 (mild); E78.00 Pure hypercholesterolemia, unspecified; M19.012 Primary osteoarthritis, left shoulder; M06.812 Other specified rheumatoid arthritis, left shoulder; M06.88 Other specified rheumatoid arthritis, vertebrae; E02 Subclinical iodine-deficiency hypothyroidism; E87.6 Hypokalemia; J45.909 Unspecified asthma, uncomplicated; D64.9 Anemia, unspecified; I48.0 Paroxysmal atrial fibrillation; F17.210 Nicotine dependence, cigarettes, uncomplicated; Z85.3 Personal history of malignant neoplasm of breast; Z90.710 Acquired absence of both cervix and uterus; Z79.01 Long term (current) use of anticoagulants; Z79.899 Other long term (current) drug therapy; Z88.8 Allergy status to other drugs, medicaments and biological substances; Z82.49 Family history of ischemic heart disease and other diseases of the circulatory system; Z82.5 Family history of asthma and other chronic lower respiratory diseases

== ENCOUNTER 2019-05-06 07:06 | Inpatient (IN) | payer MEDICARE ==
[~2019-05-06] VITALS: Ht 142.2 cm; Wt 57.9 kg
--- NOTE | ~2019-05-06 | H ---
[address] [address] HISTORY AND PHYSICAL Name: SUN SHELLEY Room: [address] IN .R.#: [id number] Admission: 05/06/19 Attend Phys: Lennox Gentile MD Discharge: 05/08/19 Date of : 42 Report #: [id number] THIS REPORT FOR: //name// cc: Claudia Case MD, Pamela MD ~ THIS REPORT FOR: //name// Please refer to the History and Physical performed in the physician's office. By: [facility] /TRENA
[~2019-05-06 07:06] MED LIST changes: +ARIMIDEX1 MG PO; +CALCIUM 600 +1 EA13 PO; +CARDIZEM CD240 MG; +CLONAZEPAM 0.50.5 M1; +HYDROCHLOROTHIA25 M2; +LOSARTAN POTASS50 MG; +PACERONE 200 M200 M1; +PROAIR HFA8.5 GM; +PROZAC10 MG PO; +SYNTHROID50 MCG PO; +XARELTO10 MG PO
[2019-05-06 11:00] VITALS: BP 146/64
--- NOTE | 2019-05-06 11:00 | NUR ---
PT ADMITTED TO ROOM 212 DIRECT FROM [facility] OFFICE WITH ORDERS. PT HX OF AFIB/FLUTTER,TACHYBRADYCARDIA SYNDROME THAT IS BEING TREATED BY PHYSICIAN. PT HAS HAD AN OUTPATIENT MONITOR THAT SHOWED AFIB/FLUTTER WITH RATE BETWEEN 40-130 BPM. PT HAS NO COMPLAINTS AT THIS TIME. PT IS ALERT OX4, ABLE TO ANSWER QUESTIONS APPROPRIATELY. PT GIVEN 80 MG SOTALOL PO DIRECTED.BILLET GRINDER IN PLACE,IV STARTED, ASSESMENT COMPLATE AND CHARTED. PT IS INDEPENDENT IN ACTIVITY AND EXPRESSES WISHES TO REMAIN SO. PT EDUCATED ON PLAN OF CARE,TREATMENTS,DIET,ACTIVITY AND CALL LIGHT. PT HAS NO FURTHER QUESTIONS AT THIS TIME.
[2019-05-06 12:11] LABS: HEMATOCRIT 40.4 % (37.0-47.0); HEMOGLOBIN 13.7 gm/dL (12.0-15.0); MCH 31.8 pg (26.0-34.0); MCHC 33.8 g/dL (28.0-37.0); MCV 94.2 fL (80.0-100.0); MPV 8.5 fl. (7.2-11.1); RBC 4.29 mil/uL (4.20-5.00); RDW-CV 13.2 % (10.5-14.5); WBC 5.2 thou/uL (4.0-11.0)
[2019-05-06 12:26] LABS: ALBUMIN 4.2 g/dL (3.4-5.0); CALCIUM 9.4 mg/dL (8.5-10.1); CREATININE 0.6 mg/dL (0.6-1.3); POTASSIUM 4.3 mmol/L (3.5-5.1); TOTAL BILIRUBIN 1.3 mg/dL (<0.1-1.0); TOTAL PROTEIN 7.9 g/dL (6.4-8.2)
[2019-05-06 16:00] VITALS: BP 143/72
--- NOTE | 2019-05-06 16:54 | EKG ---
[place] [address] ELECTROCARDIOGRAM REPORT Name: SUN SHELLEY Room: [address] ADM IN M.R.#: [id number] Admission: 05/06/19 Attend Phys: Lennox Gentile, Discharge: Date of : 42 Date of Service: 05/06/19 1033 Report #: [id number] THIS REPORT FOR: //name// [facility] Test Date: 2019-05-06 Test Time: 10:33:36 Pat Name: SUN SHELLEY Department: Room: [address] Gender: F Second Helper: : 1940 Requested By: Lennox Gentile Order Number: [id number] Srini MD: Braulio Mitchell Measurements Intervals [place] Rate: 68 P: [place]: QRS: 48 QRSD: 111 T: 236 QT: 355 QTc: 378 Interpretive Statements Atrial fibrillation LVH with secondary repolarization abnormality Compared to ECG 05/13/2018 14:08:04 Left ventricular hypertrophy now present Early repolarization now present Sinus rhythm no longer present Electronically Signed On 05-06-2019 16:53:17 HEEL SEAT SANDER by Braulio Mitchell [email or web address] <ELECTRONICALLY SIGNED> By: Braulio Mitchell MD, [facility] 05/06/19 1653 1033 1033 Braulio Mitchell MD, [facility] /EPI
[2019-05-06 19:50] VITALS: BP 148/92
[2019-05-07] VITALS (9 sets, daily range): BP systolic 127–172; BP diastolic 54–88
[2019-05-07 11:33] LABS: APTT 28.9 Seconds (25.0-31.3); INR 1.1; PROTIME 11.2 Seconds (9.20-11.50)
--- NOTE | 2019-05-07 11:47 | EKG ---
[place] [address] ELECTROCARDIOGRAM REPORT Name: SUN SHELLEY Room: [address] ADM IN M.R.#: [id number] Admission: 05/06/19 Attend Phys: Lennox Gentile, Discharge: Date of : 42 Date of Service: 05/07/19 0838 Report #: [id number] THIS REPORT FOR: //name// [facility] Test Date: 2019-05-07 Test Time: 08:38:34 Pat Name: SUN SHELLEY Department: Room: [address] Gender: F Lawn Specialist: : 1940 Requested By: Lennox Gentile Order Number: [id number] Srini MD: Braulio Mitchell Measurements Intervals [place] Rate: 75 P: [place]: QRS: 40 QRSD: 112 T: 234 QT: 355 QTc: 397 Interpretive Statements Atrial fibrillation Ventricular premature complex LVH with secondary repolarization abnormality Compared to ECG 05/06/2019 10:33:36 Ventricular premature complex(es) now present Electronically Signed On 05-07-2019 11:46:02 MANAGER RAIL by Braulio Mitchell [email or web address] <ELECTRONICALLY SIGNED> By: Braulio Mitchell MD, FACC 05/07/19 1146 0838 0838 Braulio Mitchell MD, [facility] /EPI
--- NOTE | 2019-05-07 14:46 | NUR ---
Pt out of room getting a pacemaker, spoke with dtr in room. Pt normally resides at home alone and is active and independent. Pt has a walker and cane that she can use for mobility, primarily uses the cane. [facility]. Per dtr, plan dc to home tomorrow, Pt will not want HH, Pt's granddtr is a nurse and leaves close by if needed. Following.
--- NOTE | 2019-05-07 17:08 | NUR ---
ASSUMED CARE OF PT AROUND 0730 THIS AM. REFER TO ASSESSMENT. PT HAD PACEMAKER PLACED THIS SHIFT. PT CARDIOVERTED PRIOR TO PACEMAKER PLACEMENT BUT APPEARS TO BE BACK IN AFIB. PT NOTED TO DESAT DURING PROCEDURE BUT HAS BEEN TITRATED BACK TO RA AND TOLERATING WELL. ARM SPLINT PLACED TO RUE. ON HEART HEALTHY DIET AND TOLERATING WELL. NO C/O PAIN. NO OTHER CONCERNS AT THIS TIME. CLWR. WCTM.
[2019-05-08 00:48] VITALS: BP 174/84
[2019-05-08 05:00] VITALS: BP 171/73
--- NOTE | 2019-05-08 06:38 | NUR ---
VSS. SEE MAR. SEE CHARTING. HOURLY ROUNDING FOR SAFETY.
[2019-05-08 08:00] VITALS: BP 173/86
[2019-05-08] MEDS ORDERED: SORINE 80 MG TA80 M1 PO (09:09)
[2019-05-08 09:43] VITALS: BP 173/86
[2019-05-08] MEDS ORDERED: ELIQUIS5 MG PO (10:42)
--- NOTE | 2019-05-08 11:36 | NUR ---
RECEIVED REPORT AT 0705. PT VOICED NO CONCERNS THIS SHIFT. SR WITH PACS ON NOC ENGINEER. HOURLY ROUNDING COMPLETED. DISCHARGE ORDERS RECEIVED. DISCHARGE INSTRUCTIONS GIVEN TO PATIENT AND PT VERBALIZED UNDERSTANDING. IV CATHETER DISCONTINUED. PT ESCORTED DOWN TO MAIN ENTRANCE VIA WHEELCHAIR TO GO HOME WITH DAUGHTER.
--- NOTE | 2019-05-08 17:38 | D ---
[facility] [address] [place] [address] DISCHARGE SUMMARY Name: SUN SHELLEY Tim Room: [address] IN .R.#: [id number] Admission: 05/06/19 Attend Phys: Lennox Gentile MD Discharge: 05/08/19 Date of : 42 Report #: [id number] THIS REPORT FOR: //name// cc: Claudia Case MD, Pamela MD ~ THIS REPORT FOR: //name// CC: Lennox Case MD DATE OF SERVICE: 05/08/2019 DISCHARGE DIAGNOSES: 1. Persistent atrial fibrillation. 2. Sick sinus syndrome. PROCEDURES DURING THE HOSPITALIZATION: 1. Permanent pacemaker placement. 2. DC cardioversion. 3. Antiarrhythmic loading. HOSPITAL COURSE: The patient was admitted to the hospital in persistent atrial fibrillation. She had been noted to have symptomatic bradycardia in the past. She was placed on sotalol 80 mg twice daily and monitored. Her atrial fibrillation persisted. The following day, she underwent DC cardioversion and pacemaker placement without complication. The patient tolerated hospitalization. She was started on sotalol 80 mg twice daily. Her diltiazem and metoprolol were discontinued. She remained stable throughout hospitalization. Morning EKG shows atrially paced rhythm with normal QT intervals. DISCHARGE MEDICATIONS: Loratadine 10 mg daily, Plaquenil 200 mg b.i.d., anastrozole 1 mg daily, albuterol inhaler 2 puffs p.r.n., Xarelto 20 mg daily, atorvastatin 20 mg daily, sotalol 80 mg b.i.d., losartan 50 mg b.i.d., Tylenol p.r.n., Synthroid 50 mcg daily, B12 500 mcg daily, D3 2000 units daily, and Fosamax 70 mg weekly. DISPOSITION: The patient will follow up in the office for site check in 1 week. The patient will follow up with the pacemaker interrogation in 1-2 months. We will follow up with myself in the office in 3 months. <ELECTRONICALLY SIGNED> By: Lennox Gentile MD, FACC 05/08/19 1738 0916 [id number] Jose Alejandro Gentile MD, FACC /nt
--- NOTE | 2019-05-09 11:08 | EKG ---
[place] [address] ELECTROCARDIOGRAM REPORT Name: SUN SHELLEY Room: [address] IN .R.#: [id number] Admission: 05/06/19 Attend Phys: Lennox Gentile, Discharge: 05/08/19 Date of : 42 Date of Service: 05/08/19 0816 Report #: [id number] THIS REPORT FOR: //name// [facility] Test Date: 2019-05-08 Test Time: 08:16:17 Pat Name: SUN KARSTEN Department: Room: [address] Gender: F Reference Services Head: : 1940 Requested By: Lennox Gentile Order Number: [id number] Reading MD: Lennox Gentile Measurements Intervals [place] Rate: 75 P: [place]: 227 QRS: 73 QRSD: 117 T: 227 QT: 374 QTc: 418 Interpretive Statements Atrial-paced complexes Prolonged KS interval Borderline low voltage, extremity leads LVH with secondary repolarization abnormality Compared to ECG 05/07/2019 08:38:34 First degree AV block now present Atrial fibrillation no longer present Ventricular premature complex(es) no longer present Electronically Signed On 05-09-2019 11:07:58 DENTAL LAB TECHNICIAN by Lennox Gentile [email or web address] <ELECTRONICALLY SIGNED> By: Lennox Gentile MD, FACC 05/09/19 1107 5 5 Lennox Gentile MD, FAC /EPI
--- NOTE | 2019-05-09 11:09 | EKG ---
[place] [address] ELECTROCARDIOGRAM REPORT Name: SUN SHELLEY Room: [address] IN .R.#: [id number] Admission: 05/06/19 Attend Phys: Lennox Gentile, Discharge: 05/08/19 Date of : 42 Date of Service: 05/08/19817 Report #: [id number] THIS REPORT FOR: //name// [facility] Test Date: 2019-05-08 Test Time: 08:18:47 Pat Name: SUN SHELLEY Department: Room: [address] Gender: F Boom Stick Worker: : 1940 Requested By: Lennox Gentile Order Number: [id number] Reading MD: Lennox Gentile Measurements Intervals [place] Rate: 75 P: [place]: 299 QRS: 71 QRSD: 116 T: 248 QT: 363 QTc: 406 Interpretive Statements Atrial-paced rhythm Borderline low voltage, extremity leads LVH with secondary repolarization abnormality Compared to ECG 05/07/2019 08:38:34 Atrial fibrillation no longer present Ventricular premature complex(es) no longer present Electronically Signed On 05-09-2019 11:08:04 POULTRY CUTTER by Lennox Gentile [email or web address] <ELECTRONICALLY SIGNED> By: Lennox Gentile MD, FACC 05/09/19 1108 7 7 Lennox Gentile MD, FACC /EPI
--- NOTE | 2019-05-09 14:39 | CARD ---
[address] [address] CARDIAC CATH REPORT Name: SUN SHELLEY Tim Room: [address] IN [facility]#: [id number] Admission: 05/06/19 Attend Phys: Lennox Gentile MD Discharge: 05/08/19 Date of : 42 Report #: [id number] THIS REPORT FOR: //name// cc: Claudia Case MD, Pamela MD ~ THIS REPORT FOR: //name// APPROVED REPORT Study performed: 05/07/2019 10:22:25 Patient Status: In-Patient Room #: 212 Event Personnel: Lennox Gentile Rac Specialist, Felicitas Stern RN RN, Christina Tracey RTR Monitor, Nehemias Yu RTR Scrub Exam: Insertion of Dual Chamber Permanent Pacemaker Indications: Sick Sinus Syndrome/Tachy [place] Syndrome The patient is a 78 year-old female with a history of paroxysmal atrial fibrillation and sick sinus syndrome. Conscious Sedation Start time: 12:13 End Time: 13:03 Fentanyl 100 mcg Versed 4 mg 10.3 fluoro minutes. 16 mGy. 372.14 DAP. 26 ml visipaque contrast. 1 gram Ancef IV prior to procedure start. Implanted Devices: Solia S 53 Biotronik V lead. Serial number: [id number]. Solia S 45 Biotronik A lead. Serial number: [id number]. Rosalie 8 DR-T Biotronik generator. Serial number: [id number]. Procedure The patient underwent informed consent. We discussed the details of the procedure including the risks, which include, but not limited to bleeding, infection, vascular damage, cardiac perforation, and pneumothorax. She understood these risks and was willing to proceed. As such, she was brought to the EP/Cardiac Catheterization laboratory in a fasting and sedated state and prepped and draped in a sterile fashion, received IV antibiotics prior to initiation of the procedure and a venogram was performed showing patency of the right axillary vein. The patient underwent conscious sedation, with no related complications. The patient was brought to the EP/Cardiac [place] [address] CARDIAC CATH REPORT Name: SUN SHELLEY Room: [address]#: [id number] Admission: 05/06/19 Attend Phys: Lennox Gentile MD Discharge: 05/08/19 Date of : 42 Report #: [id number] and the right chest and shoulder were prepped and draped in a sterile manner. During this case, Fluoroscopy and right subclavian venograms were used for imaging. The right subclavian region was infiltrated with 2% Lidocaine with Epinephrine subcutaneous anesthesia. A transverse incision was made in the right upper chest cavity. The subcutaneous pocket was formed via blunt dissection. Percutaneous venous access was achieved and an introducer sheath was inserted into the right Subclavian vein. Through the introducer sheaths the atrial and ventricular lead wires were positioned in the right atrial appendage and right ventricular apex respectively. Utilizing fluoroscopic guidance, the atrial and ventricular lead wires were advanced over the wires and positioned in the right atria and right ventricle respectively. Capturing and sensing thresholds were verified. Electrode Parameters P Wave: 4.5 mV R Wave: 14 mV Atrial Threshold: 0.9 V at 0.40 ms Ventricular Threshold: 1.0 V at 0.40 ms Atrial Resistance: 767 ohms Ventricular Resistance: 667 OHMS Dual Chamber The atrial and ventricular leads were then secured using 0 silk sutures. The subcutaneous pocket was irrigated with 1 gram ancef antibiotic solution.The atrial and ventricular leads were attached to the appropriate receptacles on the pulse generator and set screws firmly tightened to insure adequate contact and stability. The lead and pulse generator were placed into the subcutaneous pocket. Sharp and sponge counts were confirmed to be correct. At this time the pocket was closed subcutaneously with a 2.0 Vicryl and the skin was closed with a 4.0 Vicryl. The operative site was dressed in sterile fashion with benzoin spray, steri strips, telfa, tegaderm and the patient was transferred to the floor in stable condition. Complications The patient tolerated the procedure well and there were no complications associated with the procedure. Conclusion 1. Paroxysmal atrial for ablation [place] [address] CARDIAC CATH REPORT Name: SUN SHELLEY Room: [address]#: [id number] Admission: 05/06/19 Attend Phys: Lennox Gentile MD Discharge: 05/08/19 Date of : 42 Report #: [id number] 2. Successful placement of a dual-chamber pacemaker with atrial and ventricular lead placement. Recommendations 1. Follow-up site check in one week. 2. Follow-up device interrogation one to 2 months. <ELECTRONICALLY SIGNED> By: Lennox Gentile MD, FACC 05/09/19 1438 1438 1438Micmiranda Gentile MD, FACC /INF
== END 2019-05-08 11:15 | disposition home or self-care (01) | DRG 243 ==
LOC: M.2W 07:06
PROVIDERS: ADMIT Internal Medicine Cardiovascular Disease
PROC: 0JH606Z Insertion of Pacemaker, Dual Chamber into Chest Subcutaneous Tissue and Fascia, Open Approach (ICD-10-PCS; principal; 2019-05-07)
PROC: 02HK3JZ Insertion of Pacemaker Lead into Right Ventricle, Percutaneous Approach (ICD-10-PCS; 2019-05-07)
PROC: B516YZZ Fluoroscopy of Right Subclavian Vein using Other Contrast (ICD-10-PCS; 2019-05-07)
PROC: 02H63JZ Insertion of Pacemaker Lead into Right Atrium, Percutaneous Approach (ICD-10-PCS; 2019-05-07)
PROC: 5A2204Z Restoration of Cardiac Rhythm, Single (ICD-10-PCS; 2019-05-07)
DX: I49.5 Sick sinus syndrome (principal); I48.19 Other persistent atrial fibrillation; D68.69 Other thrombophilia; I48.92 Unspecified atrial flutter; I42.9 Cardiomyopathy, unspecified; I48.0 Paroxysmal atrial fibrillation; I10 Essential (primary) hypertension; J44.9 Chronic obstructive pulmonary disease, unspecified; E78.00 Pure hypercholesterolemia, unspecified; F17.210 Nicotine dependence, cigarettes, uncomplicated; Z82.49 Family history of ischemic heart disease and other diseases of the circulatory system; Z83.3 Family history of diabetes mellitus; Z88.8 Allergy status to other drugs, medicaments and biological substances; Z79.01 Long term (current) use of anticoagulants; Z79.899 Other long term (current) drug therapy

== ENCOUNTER → 2019-05-15 | Outpatient (CLI) | payer MEDICARE ==
[~2019-05-15] MED LIST changes: +ELIQUIS5 MG PO; +SORINE 80 MG TA80 M1 PO
== END ==
LOC: M.RAD 09:43
DX: J98.11 Atelectasis (principal); J93.0 Spontaneous tension pneumothorax; M43.8X4 Other specified deforming dorsopathies, thoracic region; M43.8X6 Other specified deforming dorsopathies, lumbar region; Z95.0 Presence of cardiac pacemaker

== ENCOUNTER → 2019-05-29 | Outpatient (CLI) | payer MEDICARE | LOC: M.RAD 10:28 | DX: I51.7 Cardiomegaly (principal); J95.811 Postprocedural pneumothorax ==

== ENCOUNTER 2019-10-29 21:37 | Inpatient (IN) | payer MEDICARE ==
[~2019-10-29] VITALS: Ht 172.7 cm; Wt 61.2 kg
--- NOTE | ~2019-10-29 | CON ---
[address] [address] CONSULTATION Name: KARSTENSUN L Room: [address] IN M.R.#: [id number] Admission: 10/30/19 Attend Phys: Jian Carpio Discharge: Date of : 42 Report #: [id number] THIS REPORT FOR: //name// cc: Claudia Case MD, Pamela MD ~ THIS REPORT FOR: //name// CC: Lennox Harrison DATE OF SERVICE: 11/01/2019 REQUESTING PHYSICIAN: Jennifer Farmer MD INDICATION FOR CONSULTATION: COVID-19 with worsening infiltrate. HISTORY OF PRESENT ILLNESS: A 79-year-old female. Past medical history is as mentioned below. This does include a history of extensive smoking. The patient is an active smoker. She is mentioned to have bronchial asthma on the records; however, it appears more likely to me at first glance that the patient has COPD instead. The patient also is on hydroxychloroquine long-term due to rheumatoid arthritis and has had paroxysmal atrial fibrillation. At this time, the patient is initially admitted on 10/28. Presentation was with chest pain, which was associated with respiration and coughing and was radiating to her shoulder blades. The patient had also reported having chills at the time of presentation. She was not aware of a fever; however, she after admission did have a fever up to 38.2 degrees Celsius. The patient was having joint aches and pains as well and was found to be in atrial fibrillation with RVR in the Emergency Room. The patient has been on room air. She did have a COVID-19 antigen performed in the Emergency Room and that came back positive. The patient since then has been treated for atrial fibrillation with RVR. She also was initially started on ceftriaxone and then switched over to Zosyn and is on azithromycin as well. She had a CTA chest, abdomen and pelvis, which was performed with aortic aneurysm protocol performed initially. There is an infiltrate in the left upper lobe noted on this, but this was too small to be fully visible on the x-ray. There has been a progressive increase in size of this infiltrate since then. The patient again had atrial fibrillation with RVR overnight. This is under control at this time. She is still on room air. Blood pressure is on the lower side; however, she appears to be well perfused at this time. It is, however, noted that the patient also is reported to have had edson sputum and has had small amounts of hemoptysis as well. She only [place] [address] CONSULTATION Name: SUN SHELLEY Room: [address] IN ..#: [id number] Admission: 10/30/19 Attend Phys: Jian Carpio Discharge: Date of : 42 Report #: [id number] breath at rest at this time. The patient had a mild elevation in temperature to 37.3 overnight. She is afebrile at this time. She does not have swelling of lower extremities or calf pain; however, she does have some varicose veins, which appear to be old. She has had joint pains, which are worse than her baseline. She has been reporting palpitations. She reports poor appetite. REVIEW OF SYSTEMS: For 14 points is negative except as mentioned above. PAST MEDICAL HISTORY: Bronchial asthma is mentioned on the records. It is possible that the patient has COPD instead. Rheumatoid arthritis, on hydroxychloroquine long-term. Paroxysmal atrial fibrillation. She has had cardioversions in the past. Hysterectomy, hyperlipidemia, hypertension, back surgery, hip surgery, lumpectomy, right elbow surgery, history of pacemaker placement. The patient's last available echocardiogram is from 04/2018 and shows a left ventricular ejection fraction of 60-65% without significant elevation in right heart pressures. There is left ventricular hypertrophy noted. SOCIAL HISTORY: The patient has an extensive history of smoking. She is a current active smoker. I am unable to quantify exactly at this time. No known history of heavy alcohol use or illegal drug use. CURRENT MEDICATIONS: List in [facility] reviewed, also as discussed above. HOME MEDICATIONS: List also in [facility] reviewed. Note that the patient is on hydroxychloroquine at home. FAMILY HISTORY: Hypertension. ALLERGIES: THE PATIENT HAS HAD SIGNIFICANT HYPONATREMIA WITH HYDROXYCHLOROQUINE IN THE PAST. SHE HAS HAD SHAN INHIBITOR-RELATED COUGH IN THE PAST WITH LISINOPRIL. THE PATIENT HAS HAD ITCHING WITH IBUPROFEN IN THE PAST. PHYSICAL EXAMINATION: GENERAL: She is alert, awake and oriented, does not appear to be in any distress. VITAL SIGNS: Has a pulse of 97 and a blood pressure of 118/48. She is not on supplemental oxygen. She is oxygenating around 93% to 94%. Her respiratory rate is around 18. She is afebrile now; however, has had recent fever as described above. HEENT: Head is normocephalic and atraumatic. NECK: Does not show raised JVP, asymmetry, mass, or lymph nodes. CHEST: Symmetrical expansion on inspection and palpation. On auscultation, breath sounds are bilaterally equal, mildly decreased. [place] [address] CONSULTATION Name: SUN SHELLEY Room: [address] IN [facility]#: [id number] Admission: 10/30/19 Attend Phys: Jian Carpio Discharge: Date of : 42 Report #: [id number] sounds. HEART: Irregular. There is no murmur. ABDOMEN: Soft and nontender. EXTREMITIES: Lower extremities show no edema, no calf tenderness. There are some varicose veins noted. There is some evidence of chronic venous insufficiency. SKIN: However, is dry and intact. NEUROLOGICAL: Moves all extremities bilaterally equally and spontaneously with no focal deficit identified. IMAGING DATA: The patient's CT chest as well as chest x-rays are as described above. There are worsening infiltrates in the left upper lobe. LABORATORY DATA: The patient's CBC as well as chemistries repeated several times, also in [facility] reviewed. ProBNP is noted to be elevated. CRP is noted to be elevated. D-dimer initially 0.8, then decreased to 0.63, now increasing again to 0.95. Fibrinogen increased to 644. ASSESSMENT/PLAN: 1. COVID-19 pneumonia. The patient's chest x-rays clearly appear to be worsening. Therefore, I agree with starting dexamethasone. I will give her 2 extra doses of dexamethasone today. Should the patient fail to improve, I suggest increasing the frequency of dexamethasone scheduled tomorrow. The patient would also benefit from remdesivir if remdesivir is available. I understand it has limited availability. I favor treating her with remdesivir considering that chest x-rays are clearly worsening. Note that the patient is on hydroxychloroquine. Remdesivir has an interaction with hydroxychloroquine and hydroxychloroquine reduces the efficacy of remdesivir and therefore if it is possible to start the patient on remdesivir, then for the duration that she will be on remdesivir, I recommend holding hydroxychloroquine and subsequently restarting. 2. Worsening pulmonary infiltrate. The patient currently is on Zosyn as well as azithromycin. I will go ahead and switch her azithromycin over to doxycycline, which will add some methicillin-resistant Staphylococcus aureus coverage. We will also reduce her risk of developing QT prolongation. More cultures and serologies are also ordered. Note that the patient's last CTA chest, which was performed on 10/28, did not show any evidence of pulmonary emboli. It is, however, performed with an aortic aneurysm protocol and the patient has now had hemoptysis. She is on Eliquis already and therefore, I do not see a major change in management except possibly a change in the dose of Eliquis at this time if she is found to have pulmonary emboli; however, defining this further will help us make decisions in case her hemoptysis worsens. Therefore, I decided to go ahead and obtain a CTA chest with pulmonary embolism protocol as well as venous Dopplers. Note that she does have some chronic venous insufficiency as well. 3. Atrial fibrillation with rapid [place] [address] CONSULTATION Name: SUN SHELLEY Room: [address] IN [facility].#: [id number] Admission: 10/30/19 Attend Phys: Jian Carpio Discharge: Date of : 42 Report #: [id number] above. She is rate controlled now. 4. Chronic venous insufficiency. Venous Dopplers as above. 5. Bronchial asthma/history of smoking. It is entirely possible the patient has underlying chronic obstructive pulmonary disease instead, regardless management is the same at this time. She does remain on p.r.n. albuterol and I did order steroid as above. 6. History of rheumatoid arthritis. She is on hydroxychloroquine long-term. The patient is critically ill at this time with COVID-19 pneumonia. Thanks for this consultation. The case was discussed with Dr. Farmer. By: [id number] Kelly MD /nt
[2019-10-29 21:47] VITALS: BP 148/67
[2019-10-29 22:24] LABS: HEMATOCRIT 39.4 % (37.0-47.0); HEMOGLOBIN 13.2 gm/dL (12.0-15.0); MCH 31.8 pg (26.0-34.0); MCHC 33.6 g/dL (28.0-37.0); MCV 94.6 fL (80.0-100.0); MPV 7.8 fl. (7.2-11.1); NUCLEATED RBCS 0 /100WBC; PLATELET COUNT* 260 thou/uL (150-400); RBC 4.16 mil/uL (4.20-5.00); RDW-CV 13.6 % (10.5-14.5); WBC 13.5 thou/uL (4.0-11.0)
[2019-10-29 22:37] LABS: CALCIUM 8.9 mg/dL (8.5-10.1); CREATININE 0.8 mg/dL (0.6-1.3); POTASSIUM 4.6 mmol/L (3.5-5.1)
[2019-10-29 22:40] LABS: PROTIME 10.6 Seconds (9.20-11.50)
[2019-10-29 22:47] LABS: ALBUMIN 4.3 g/dL (3.4-5.0); MAGNESIUM 2.2 mg/dL (1.8-2.4); TOTAL BILIRUBIN 0.9 mg/dL (<0.1-1.0); TOTAL PROTEIN 7.9 g/dL (6.4-8.2)
[2019-10-29 22:49] LABS: ABSOLUTE EOSINOPHILS 0.1 thou/uL (0.0-0.7); ABSOLUTE LYMPHOCYTES 1.8 thou/uL (0.8-5.3); ABSOLUTE MONOCYTES 0.5 thou/uL (0.0-1.2); ABSOLUTE NEUTROPHILS 11.1 thou/uL (1.6-8.1); PLATELET ESTIMATE ADEQUATE
[2019-10-30 00:59] LABS: URINE BILIRUBIN NEGATIVE (Negative); URINE BLOOD 1+ (Negative); URINE CLARITY CLEAR; URINE COLOR STRAW; URINE GLUCOSE-RANDOM NEGATIVE (Negative); URINE KETONES NEGATIVE (Negative); URINE LEUKOCYTES-REFLEX 1+ (Negative); URINE NITRITE-REFLEX NEGATIVE (Negative); URINE PROTEIN NEGATIVE (Negative); URINE UROBILINOGEN 0.2 E.U./dl (0.2-1.0)
[2019-10-30 01:18] LABS: CASTS None Seen /LPF (None Seen); SQUAMOUS 0-3 Few /LPF (0-3); URINE WBC-REFLEX 0-5 Rare /HPF (0-5)
[2019-10-30 01:19] LABS: BACTERIA-REFLEX None Seen /HPF (None Seen); CRYSTALS None Seen /LPF (None Seen); URINE RBC 0-2 Rare /HPF (0-2)
[2019-10-30 02:30] VITALS: BP 106/37
[2019-10-30 02:50] VITALS: BP 98/24
[2019-10-30 08:00] VITALS: BP 112/70
[2019-10-30 08:43] LABS: ABSOLUTE LYMPHOCYTES 0.8 thou/uL (0.8-5.3); ABSOLUTE MONOCYTES 1.4 thou/uL (0.0-1.2); ABSOLUTE NEUTROPHILS 17.1 thou/uL (1.6-8.1); BASOPHILS 0.1 %; EOSINOPHILS 0.1 %; HEMATOCRIT 33.6 % (37.0-47.0); HEMOGLOBIN 11.3 gm/dL (12.0-15.0); LYMPHOCYTES 4.3 %; MCH 32.1 pg (26.0-34.0); MCHC 33.6 g/dL (28.0-37.0); MCV 95.5 fL (80.0-100.0); MONOCYTES 7.4 %; NUCLEATED RBCS 0 /100WBC; PLATELET COUNT* 208 thou/uL (150-400); POLYS 88.1 %; RBC 3.52 mil/uL (4.20-5.00); RDW-CV 13.9 % (10.5-14.5); WBC 19.4 thou/uL (4.0-11.0)
[2019-10-30 08:58] LABS: ALBUMIN 3.1 g/dL (3.4-5.0); ALKALINE PHOSPHATASE 68 U/L (46-116); ANION GAP 9 mmol/L (7-16); BUN 11 mg/dL (7-18); CALCIUM 7.5 mg/dL (8.5-10.1); CHLORIDE 98 mmol/L (98-107); CO2 25 mmol/L (21-32); CREATININE 0.8 mg/dL (0.6-1.3); GLUCOSE 118 mg/dL (70-99); NT-PRO BRAIN NAT PEPTIDE 4946 pg/mL (<300); POTASSIUM 4.2 mmol/L (3.5-5.1); SGOT 22 U/L (15-37); SGPT 37 U/L (30-65); SODIUM 132 mmol/L (136-145); TOTAL BILIRUBIN 1.2 mg/dL (<0.1-1.0); TOTAL PROTEIN 5.9 g/dL (6.4-8.2); TROPONIN-I LEVEL <0.06 ng/mL (<0.06)
[2019-10-30 09:06] LABS: APTT 25.7 Seconds (25.0-31.3); INR 1.1; PROTIME 11.4 Seconds (9.20-11.50)
--- NOTE | 2019-10-30 10:29 | EKG ---
[place] [address] ELECTROCARDIOGRAM REPORT Name: SUN SHELLEY Room: [address] ADM IN [facility].#: [id number] Admission: 10/30/19 Attend Phys: Raj Harrison Discharge: Date of : 42 Date of Service: 10/29/192146 Report #: [id number] THIS REPORT FOR: //name// [facility] ED Test Date: 2019-10-29 Test Time: 21:47:03 Pat Name: SUN SHELLEY Department: Room: [facility] Gender: F Sushi Chef: ARISTIDES : 1940 Requested By: Briseyda Hu Order Number: [id number] MD: Darwin Corrales Measurements Intervals [place] Rate: 112 P: MS: QRS: 64 QRSD: 110 T: 49 QT: 371 QTc: 507 Interpretive Statements Afib/flut and V-paced complexes Low voltage, precordial leads Minimal ST depression, anterolateral leads artifact noted Prolonged QT interval Compared to ECG 05/08/2019 08:18:47 Prolonged QT interval now present Atrial-paced complex(es) or rhythm no longer present Left ventricular hypertrophy no longer present Electronically Signed On 10-30-2019 10:28:44 CDT by Darwin Corrales [email or web address] <ELECTRONICALLY SIGNED> By: Darwin Corrales MD, [facility] 10/30/19 1028 46 46 Darwin Corrales MD, [facility] /EPI
[2019-10-30 12:00] VITALS: BP 100/45
[2019-10-30 16:00] VITALS: BP 92/27
[2019-10-30 20:00] VITALS: BP 131/52
[2019-10-31] VITALS: BP 109/70
[2019-10-31 03:59] VITALS: BP 114/54
[2019-10-31 08:00] VITALS: BP 123/61
[2019-10-31 10:12] LABS: HEMATOCRIT 32.2 % (37.0-47.0); HEMOGLOBIN 10.9 gm/dL (12.0-15.0); MCH 32.2 pg (26.0-34.0); MCHC 33.8 g/dL (28.0-37.0); MCV 95.3 fL (80.0-100.0); MPV 8.3 fl. (7.2-11.1); RBC 3.38 mil/uL (4.20-5.00); RDW-CV 14.1 % (10.5-14.5); WBC 18.6 thou/uL (4.0-11.0)
[2019-10-31 10:47] LABS: ALKALINE PHOSPHATASE 76 U/L (46-116); ANION GAP 9 mmol/L (7-16); BUN 9 mg/dL (7-18); CALCIUM 7.8 mg/dL (8.5-10.1); CHLORIDE 99 mmol/L (98-107); CO2 24 mmol/L (21-32); CREATININE 0.6 mg/dL (0.6-1.3); GLUCOSE 112 mg/dL (70-99); MAGNESIUM 2.1 mg/dL (1.8-2.4); NT-PRO BRAIN NAT PEPTIDE 5697 pg/mL (<300); POTASSIUM 4.2 mmol/L (3.5-5.1); SGOT 14 U/L (15-37); SGPT 29 U/L (30-65); SODIUM 132 mmol/L (136-145); TOTAL BILIRUBIN 1.3 mg/dL (<0.1-1.0); TOTAL PROTEIN 6.2 g/dL (6.4-8.2); TROPONIN-I LEVEL <0.06 ng/mL (<0.06)
[2019-10-31 11:03] LABS: APTT 29.1 Seconds (25.0-31.3); INR 1.3
[2019-10-31 12:00] VITALS: BP 131/62
--- NOTE | 2019-10-31 14:21 | EKG ---
[place] [address] ELECTROCARDIOGRAM REPORT Name: SUN SHELLEY Room: [address] ADM IN M.R.#: [id number] Admission: 10/30/19 Attend Phys: Raj Harrison Discharge: Date of : 42 Date of Service: 10/31/1909 Report #: [id number] THIS REPORT FOR: //name// [facility] Test Date: 2019-10-31 Test Time: 08:09:56 Pat Name: SUN SHELLEY Department: Room: [address] Gender: F Field Services Analyst: KEYANNA : 1940 Requested By: Darwin Corrales Order Number: [id number] Srini MD: Darwin Corrales Measurements Intervals [place] Rate: 106 P: DE: QRS: 62 QRSD: 101 T: 243 QT: 293 QTc: 389 Interpretive Statements Afib/flut and V-paced complexes No further rhythm analysis attempted due to paced rhythm Borderline low voltage, extremity leads LVH with secondary repolarization abnormality Compared to ECG 10/29/2019 21:47:03 Left ventricular hypertrophy now present Early repolarization now present Prolonged QT interval no longer present Electronically Signed On 10-31-2019 14:20:58 CDT by Darwin Corrales [email or web address] <ELECTRONICALLY SIGNED> By: Darwin Corrales MD, [facility] 10/31/19 1420 8 08 Darwin Corrales MD, [facility] /EPI
--- NOTE | 2019-10-31 14:25 | CON ---
[address] [address] CONSULTATION Name: SUN SHELLEY Tim Room: [address] IN .R.#: [id number] Admission: 10/30/19 Attend Phys: Jian Carpio Discharge: Date of : 42 Report #: [id number] THIS REPORT FOR: //name// cc: Claudia Case MD, Pamela MD ~ THIS REPORT FOR: //name// CC: Lennox Harrison DATE OF SERVICE: 10/30/2019 CARDIOLOGY CONSULTATION HISTORY OF PRESENT ILLNESS: The patient is a 79-year-old single white female who I was asked to see in the hospital after she is noted to be in atrial fibrillation. The patient has an extensive past medical history. She has had paroxysmal atrial fibrillation for years. She has been cardioverted several times including cardioversion by Dr. Roy and Kip. She was on amiodarone and has been chronically anticoagulated in the past. Because of recurrent atrial fibrillation, she was taken off of amiodarone and started on sotalol this past year by Dr. Gentile. Because of symptomatic bradycardia, she had a pacemaker inserted in April. She has done well until recently she complained of fatigue, no appetite. She has been coughing, running a fever. She does say her heart rate was increasing. She had some chest discomfort. She finally came to the hospital yesterday and was positive for COVID-19. She was noted to be in atrial fibrillation. She was started on IV Cardizem. Cardiology consultation is requested. PAST MEDICAL HISTORY: She has had a back surgery, hypertension, rheumatoid arthritis, she is followed by a hvac design mechanical engineer; and hyperlipidemia. CURRENT MEDICATIONS: Include albuterol inhaler, Arimidex, Eliquis, Lipitor, diltiazem, Plaquenil, losartan, and sotalol. ALLERGIES: SHE HAS A PREVIOUS INTOLERANCE TO LISINOPRIL, WHICH MADE HER COUGH. FAMILY HISTORY: Positive for heart disease. SOCIAL HISTORY: She is , lives in [place] by herself. She quit smoking in the past. No alcohol abuse. REVIEW OF SYSTEMS: She has no history of stroke. She has asthma. No history of liver disease or kidney disease. Cancer of the [place] [address] CONSULTATION Name: SUN SHELLEY Tim Room: [address]#: [id number] Admission: 10/30/19 Attend Phys: Jian Carpio Discharge: Date of : 42 Report #: [id number] chronic skin condition. PHYSICAL EXAMINATION: GENERAL: Revealed a elderly female, appeared in no distress. VITAL SIGNS: Blood pressure of 120/70, pulse was 100 and irregular. She was afebrile. HEENT: She was anicteric. Conjunctivae are pink. Mucous membranes are moist. NECK: Veins do not appear distended. No carotid bruits. CHEST: Revealed coarse breath sounds at bases. CARDIOVASCULAR: Irregular, tachycardia. ABDOMEN: Soft. EXTREMITIES: No edema. Dorsalis pedis pulse 1+ bilaterally. SKIN: Cool and dry. NEUROLOGIC: Nonfocal. Her ECG on admission showed atrial fibrillation, occasional paced beats. Her workup, she had an echocardiogram in 2015 that showed an ejection fraction of only 30% with left atrial enlargement, aortic sclerosis. Nuclear stress test in 03/2018 showed an ejection fraction only 28% with evidence of previous inferior infarction. There were no reversible defects. Her workup in the Emergency Room last night showed cardiomegaly, no significant increased vascular markings. She had a CT scan of the chest that showed cardiomegaly, pleural effusions, pulmonary edema, atelectasis, and coronary artery calcification. LABORATORY WORK: Sodium 133, potassium 4.3, BUN 53, and creatinine was 3.7. Troponin 0.06. BNP 22,256. TSH 10. T4 of 1.4. Ferritin 163. White blood cell count 6.1 and hemoglobin 9.6. IMPRESSION AND RECOMMENDATIONS: 1. Atrial fibrillation. At this time, I would aim for rate control. I would discontinue sotalol because of her cardiomyopathy and switched to carvedilol for rate control. I would continue diltiazem. I would continue anticoagulation, although I decreased the dose of Eliquis to 2.5 mg every 12 hours because of chronic kidney disease. 2. Cardiomyopathy. Evidence of previous myocardial infarction. No symptoms of angina. Cardiomyopathy, possible ischemic. I would recommend carvedilol. The patient cannot take lisinopril because of cough. I would consider adding losartan. I would not recommend Aldactone because of chronic kidney disease. 3. COVID-19 with fever and cough. 4. History of chronic obstructive pulmonary disease. The patient uses a bronchodilator. 5. Previous diagnosis of hepatitis C. 6. Previous tobacco abuse. [address] [address] CONSULTATION Name: SUN SHELLEY Room: [address] IN [place].#: [id number] Admission: 10/30/19 Attend Phys: Jian Carpio Discharge: Date of : 42 Report #: [id number] 7. History of breast cancer. 8. Rheumatoid arthritis. The patient is followed by a hvac design mechanical engineer. <ELECTRONICALLY SIGNED> By: Darwin Corrales MD, FACC 10/31/19 1425 0946 [id number] Corrales MD, FACC /nt
[2019-10-31 20:00] VITALS: BP 148/66
[2019-11-01] VITALS: BP 149/56
[2019-11-01 04:30] VITALS: BP 135/57
[2019-11-01 05:00] LABS: HEMATOCRIT 33.4 % (37.0-47.0); HEMOGLOBIN 11.3 gm/dL (12.0-15.0); MCHC 33.9 g/dL (28.0-37.0); MCV 94.5 fL (80.0-100.0); RBC 3.54 mil/uL (4.20-5.00); RDW-CV 13.9 % (10.5-14.5); WBC 18.1 thou/uL (4.0-11.0)
[2019-11-01 05:18] LABS: ALBUMIN 2.9 g/dL (3.4-5.0); CALCIUM 8.4 mg/dL (8.5-10.1); CREATININE 0.5 mg/dL (0.6-1.3); MAGNESIUM 2.1 mg/dL (1.8-2.4); TOTAL BILIRUBIN 1.2 mg/dL (<0.1-1.0); TOTAL PROTEIN 6.5 g/dL (6.4-8.2)
[2019-11-01 09:00] VITALS: BP 131/92
[2019-11-01 11:45] LABS: APTT 31.7 Seconds (25.0-31.3); INR 1.1; PROTIME 11.2 Seconds (9.20-11.50)
[2019-11-01 11:49] LABS: NT-PRO BRAIN NAT PEPTIDE 4014 pg/mL (<300); TROPONIN-I LEVEL <0.06 ng/mL (<0.06)
[2019-11-01 11:50] VITALS: BP 118/48
[2019-11-01 16:30] VITALS: BP 134/90
[2019-11-01 22:00] VITALS: BP 128/54
[2019-11-02 03:15] VITALS: BP 120/60
[2019-11-02 06:00] LABS: HEMATOCRIT 29.8 % (37.0-47.0); HEMOGLOBIN 10.2 gm/dL (12.0-15.0); MCH 32.1 pg (26.0-34.0); MCHC 34.3 g/dL (28.0-37.0); MCV 93.4 fL (80.0-100.0); MPV 7.6 fl. (7.2-11.1); NUCLEATED RBCS 0 /100WBC; PLATELET COUNT* 184 thou/uL (150-400); RBC 3.19 mil/uL (4.20-5.00); WBC 11.5 thou/uL (4.0-11.0)
[2019-11-02 06:15] LABS: ALBUMIN 2.6 g/dL (3.4-5.0); CALCIUM 8.4 mg/dL (8.5-10.1); CREATININE 0.6 mg/dL (0.6-1.3); MAGNESIUM 2.4 mg/dL (1.8-2.4); POTASSIUM 3.8 mmol/L (3.5-5.1); TOTAL PROTEIN 6.4 g/dL (6.4-8.2)
[2019-11-02 08:39] LABS: ABSOLUTE LYMPHOCYTES 0.7 thou/uL (0.8-5.3); ABSOLUTE MONOCYTES 0.3 thou/uL (0.0-1.2); ABSOLUTE NEUTROPHILS 10.5 thou/uL (1.6-8.1); BURR CELLS 1+; SCHISTOCYTES 1+
[2019-11-02 08:40] LABS: LARGE PLATELETS FEW; PLATELET ESTIMATE ADEQUATE
[2019-11-02 10:22] VITALS: BP 142/49
[2019-11-02 12:23] VITALS: BP 114/89
[2019-11-02 16:46] VITALS: BP 123/53
[2019-11-02 20:00] VITALS: BP 121/54
[2019-11-03 00:15] VITALS: BP 143/67
[2019-11-03 04:00] VITALS: BP 131/53
[2019-11-03 05:32] LABS: HEMATOCRIT 28.7 % (37.0-47.0); HEMOGLOBIN 9.8 gm/dL (12.0-15.0); MCH 31.8 pg (26.0-34.0); MCHC 34.1 g/dL (28.0-37.0); MCV 93.1 fL (80.0-100.0); MPV 7.5 fl. (7.2-11.1); RBC 3.09 mil/uL (4.20-5.00); RDW-CV 13.9 % (10.5-14.5); WBC 14.7 thou/uL (4.0-11.0)
[2019-11-03 05:46] LABS: APTT 30.3 Seconds (25.0-31.3); PROTIME 10.7 Seconds (9.20-11.50)
[2019-11-03 06:07] LABS: PREALBUMIN 11.4 mg/dL (18.0-35.7)
[2019-11-03 06:11] LABS: ALBUMIN 2.5 g/dL (3.4-5.0); ALKALINE PHOSPHATASE 85 U/L (46-116); ANION GAP 10 mmol/L (7-16); BUN 11 mg/dL (7-18); CALCIUM 8.3 mg/dL (8.5-10.1); CHLORIDE 103 mmol/L (98-107); CO2 25 mmol/L (21-32); CREATININE 0.6 mg/dL (0.6-1.3); GLUCOSE 128 mg/dL (70-99); MAGNESIUM 2.3 mg/dL (1.8-2.4); NT-PRO BRAIN NAT PEPTIDE 2573 pg/mL (<300); POTASSIUM 3.8 mmol/L (3.5-5.1); SGOT 81 U/L (15-37); SGPT 106 U/L (30-65); SODIUM 138 mmol/L (136-145); TOTAL BILIRUBIN 0.6 mg/dL (<0.1-1.0); TOTAL PROTEIN 6.4 g/dL (6.4-8.2); TROPONIN-I LEVEL <0.06 ng/mL (<0.06)
[2019-11-03 08:00] VITALS: BP 144/87
[2019-11-03 13:50] VITALS: BP 123/60
[2019-11-03 17:56] VITALS: BP 149/73
[2019-11-03 19:59] VITALS: BP 149/73
[2019-11-04] VITALS: BP 124/63
[2019-11-04 04:00] VITALS: BP 130/74
[2019-11-04 07:29] LABS: PROTIME 10.8 Seconds (9.20-11.50)
[2019-11-04 07:32] LABS: PREALBUMIN 13.7 mg/dL (18.0-35.7)
[2019-11-04 07:57] LABS: NT-PRO BRAIN NAT PEPTIDE 5224 pg/mL (<300); TROPONIN-I LEVEL <0.06 ng/mL (<0.06)
[2019-11-04 08:00] VITALS: BP 129/54
[2019-11-04 12:00] VITALS: BP 143/67
[2019-11-04 16:00] VITALS: BP 157/84
[2019-11-04 20:30] VITALS: BP 149/73
[2019-11-05] VITALS: BP 168/82
[2019-11-05 08:00] VITALS: BP 104/51; BP 143/55
[2019-11-05] MEDS ORDERED: PREDNISONE 10 M10 MG PO (08:44)
[2019-11-05] MEDS ORDERED: CEFDINIR300 MG PO (08:44)
[2019-11-05] MEDS ORDERED: CARDIZEM LA120 M1 PO (08:44)
[2019-11-05] MEDS ORDERED: VIBRAMYCIN 100100 MG PO (08:44)
[2019-11-05] MEDS ORDERED: HYDROCODONE-CH115 ML PO (08:44)
[2019-11-05] MEDS ORDERED: TOPROL XL50 MG PO (08:44)
[2019-11-05] MEDS ORDERED: LANOXIN125 MCG PO (08:44)
[2019-11-05 12:00] VITALS: BP 160/89
[2019-11-05 14:05] VITALS: BP 160/89
[2019-11-05 14:08] VITALS: BP 160/89
[2019-11-05 14:13] VITALS: BP 160/89
== END 2019-11-05 14:44 | disposition home or self-care (01) | DRG 177 ==
LOC: M.ERS 21:37 → M.2W 10-30 00:17 → M.TBA-ER 10-30 00:17 → M.2W 10-30 02:31
PROVIDERS: Emergency Medicine; Internal Medicine; Internal Medicine Critical Care Medicine; ADMIT Internal Medicine; ATTEND Internal Medicine
DX: U07.1 COVID-19 (principal); J15.6 Pneumonia due to other Gram-negative bacteria; J12.89 Other viral pneumonia; I48.20 Chronic atrial fibrillation, unspecified; J44.0 Chronic obstructive pulmonary disease with (acute) lower respiratory infection; I42.9 Cardiomyopathy, unspecified; E78.5 Hyperlipidemia, unspecified; I10 Essential (primary) hypertension; I48.0 Paroxysmal atrial fibrillation; M06.9 Rheumatoid arthritis, unspecified; I87.2 Venous insufficiency (chronic) (peripheral); F17.210 Nicotine dependence, cigarettes, uncomplicated; E78.00 Pure hypercholesterolemia, unspecified; Z90.710 Acquired absence of both cervix and uterus; Z79.01 Long term (current) use of anticoagulants; Z79.899 Other long term (current) drug therapy; Z88.8 Allergy status to other drugs, medicaments and biological substances; Z85.3 Personal history of malignant neoplasm of breast

== ENCOUNTER 2020-08-27 19:19 | Observation (INO) | payer OTHER ==
[~2020-08-27] VITALS: Ht 142.2 cm; Wt 55.3 kg
[~2020-08-27 19:19] MED LIST changes: +CARDIZEM LA120 M1 PO; +CEFDINIR300 MG PO; +HYDROCODONE-CH115 ML PO; +LANOXIN125 MCG PO; +LOSARTAN POTASS50 MG PO; +TOPROL XL50 MG PO; +VIBRAMYCIN 100100 MG PO
[2020-08-27 19:37] VITALS: BP 150/53
[2020-08-27 19:56] LABS: ABSOLUTE EOSINOPHILS 0.1 thou/uL (0.0-0.7); ABSOLUTE LYMPHOCYTES 0.7 thou/uL (0.8-5.3); ABSOLUTE MONOCYTES 0.8 thou/uL (0.0-1.2); ABSOLUTE NEUTROPHILS 6.7 thou/uL (1.6-8.1); BASOPHILS 0.3 %; EOSINOPHILS 0.8 %; HEMATOCRIT 32.4 % (37.0-47.0); LYMPHOCYTES 8.2 %; MCH 31.6 pg (26.0-34.0); MONOCYTES 9.6 %; MPV 7.6 fl. (7.2-11.1); NUCLEATED RBCS 0 /100WBC; PLATELET COUNT* 185 thou/uL (150-400); POLYS 81.1 %; RBC 3.49 mil/uL (4.20-5.00); RDW-CV 14.3 % (10.5-14.5); WBC 8.2 thou/uL (4.0-11.0)
[2020-08-27 20:05] LABS: CALCIUM 9.1 mg/dL (8.5-10.1); CREATININE 0.5 mg/dL (0.6-1.3); POTASSIUM 4.4 mmol/L (3.5-5.1)
[2020-08-27 21:01] LABS: ESR (SEDRATE) 8 mm/hr (0-30)
[2020-08-27 22:45] VITALS: BP 115/71
[2020-08-27 23:19] VITALS: BP 174/83
[2020-08-28 02:49] LABS: URINE BILIRUBIN NEGATIVE (Negative); URINE BLOOD NEGATIVE (Negative); URINE CLARITY CLEAR; URINE COLOR YELLOW; URINE GLUCOSE-RANDOM NEGATIVE (Negative); URINE KETONES TRACE (Negative); URINE LEUKOCYTES-REFLEX TRACE (Negative); URINE NITRITE-REFLEX NEGATIVE (Negative); URINE PROTEIN NEGATIVE (Negative); URINE UROBILINOGEN 0.2 E.U./dl (0.2-1.0)
[2020-08-28 03:00] LABS: BACTERIA-REFLEX 1-9 Few /HPF (None Seen); CASTS None Seen /LPF (None Seen); CRYSTALS None Seen /LPF (None Seen); MUCUS 0-3 Light strn/LPF (None Seen); SQUAMOUS 0-3 Few /LPF (0-3); URINE RBC 0-2 Rare /HPF (0-2); URINE WBC-REFLEX 0-5 Rare /HPF (0-5)
[2020-08-28 08:00] VITALS: BP 184/79
[2020-08-28 08:14] LABS: CALCIUM 8.6 mg/dL (8.5-10.1); CREATININE 0.4 mg/dL (0.6-1.3); POTASSIUM 3.7 mmol/L (3.5-5.1)
[2020-08-28 21:31] VITALS: BP 154/68
[2020-08-29 08:00] VITALS: BP 120/66
[2020-08-29 11:30] VITALS: BP 120/66
[2020-08-29 11:46] VITALS: BP 120/66
[2020-08-29 12:26] VITALS: BP 120/66
== END 2020-08-29 12:15 | disposition home or self-care (01) ==
LOC: M.ERS 19:19 → M.ORTHSURG 21:32 → M.TBA-ER 21:32 → M.ORTHSURG 21:32
PROVIDERS: Emergency Medicine; Family Medicine; ADMIT Internal Medicine; ATTEND Internal Medicine
DX: E87.1 Hypo-osmolality and hyponatremia (principal); M25.551 Pain in right hip; Z20.822 Contact with and (suspected) exposure to COVID-19; I10 Essential (primary) hypertension; I48.91 Unspecified atrial fibrillation; I25.10 Atherosclerotic heart disease of native coronary artery without angina pectoris; L40.9 Psoriasis, unspecified; F17.200 Nicotine dependence, unspecified, uncomplicated; Z88.8 Allergy status to other drugs, medicaments and biological substances; Z88.6 Allergy status to analgesic agent